=== PATIENT | male | born 1935 | race Caucasian/White ===

== ENCOUNTER 2019-08-01 13:45 | Emergency (ER) | payer OTHER ==
[2019-08-01 13:59] VITALS: BP 143/71
--- NOTE | 2019-08-01 14:02 | ED Physician Documentation ---
Ear Complaints - HISTORIAN Historian: patient - HPI Stated Complaint: right ear discomfort Chief Complaint: Ear Complaints Timing: still present Location of Pain: R ear Further Comments: yes (he denies any pain states he feels the ear is clogged) - ROS CONST: no problems - PAST HX Past History: none Immunizations: UTD Allergies/Adverse Reactions: Allergies Allergy/AdvReac Type Severity Reaction Status Date / Time Sulfa (Sulfonamide Allergy Unknown Verified 08/01/19 14:00 Antibiotics) Home Medications: Ambulatory Orders Medication Instructions Recorded Aspirin [Aspirin EC] 81 mg PO DAILY 08/01/19 Baclofen 10 mg PO DAILY 08/01/19 Finasteride [Proscar] 5 mg PO DAILY 08/01/19 Hydrochlorothiazide 12.5 mg PO DAILY 08/01/19 Levothyroxine Sodium 50 mcg PO DAILY 08/01/19 Tamsulosin HCl 0.4 mg PO DAILY 08/01/19 - SOCIAL HX Smoking History: non-smoker Alcohol Use: none Drug Use: none - FAMILY HX Family History: No - VITAL SIGNS Vital Signs: Vital Signs Temp Pulse Resp BP Pulse Ox 98.1 F 73 18 143/71 97 08/01/19 13:56 08/01/19 13:56 08/01/19 13:56 08/01/19 13:56 08/01/19 13:56 - REVIEWED ASSESSMENTS Nursing Assessment Reviewed: Yes Vitals Reviewed: Yes Ear Complaint Physical Exam - EXAM General Appearance: no acute distress, alert Ear: auricle nml, total cerumen impaction (right ear ) Mouth/Throat: lips nml Nose: nml inspection Head/Neck: atraumatic Eye: eyes nml inspection Resp/CVS: chest non-tender, breath sounds nml, heart sounds nml, no resp. distress, lungs clear, reg. rate & rhythm Abdomen: non-tender Skin: nml color Neuro/Psych: oriented x3 Discharge Clincal Impression: Cerumen impaction Qualifiers: Laterality: right Qualified Code(s): H61.21 - Impacted cerumen, right ear Referrals: Primary Doctor,No [Primary Care Provider] - 2 Days Comments: 1. Continue the debrox 5 drops right ear x 4 days 2. Follow up with PCP in 2 days if needed 3. Return to ER for increased concerns Condition: Stable Disposition: 01 HOME, SELF-CARE Decision to Admit: NO Date of Decison to Admit: 08/01/19 Decision Time: 14:06
[2019-08-01] MEDS ORDERED: CARBAMIDE PEROXIDE 6.5% OTIC SUSP 15 ML BOTTLE AD ONE (14:04)
== END 2019-08-01 14:13 | disposition home or self-care (01) ==
LOC: ED 13:45
DX: H61.21 Impacted cerumen, right ear (principal)
CPT/HCPCS: 99282